=== PATIENT | male | born 1950 | race Caucasian/White ===

== ENCOUNTER 2017-11-05 05:07 | Inpatient (IN) | payer MEDICARE, OTHER ==
[~2017-11-05] VITALS: Ht 165.1 cm; Wt 87.2 kg
[2017-11-05] MEDS ORDERED: FURO20 PO (05:19)
[2017-11-05] MEDS ORDERED: ATOR40TA28 PO (05:19)
[2017-11-05] MEDS ORDERED: SLOWK8 PO (05:19)
[2017-11-05] MEDS ORDERED: LISI-660 PO (05:19)
[2017-11-05] MEDS ORDERED: ASPI-556 PO (05:19)
[2017-11-05] MEDS ORDERED: SPIR25 PO (05:19)
[2017-11-05] MEDS ORDERED: CLOP75 PO (05:19)
[2017-11-05 06:23] LABS: BASOPHILS # (AUTO) 0.03 K/uL (0.00-0.20); BASOPHILS % (AUTO) 0.1 % (0.0-2.0); EOSINOPHILS % (AUTO) 0.01 % (1.0-6.0); HEMATOCRIT 41.2 % (41-53); HEMOGLOBIN 13.5 g/dL (13.5-17.5); LYMPHOCYTES # (AUTO) 0.4 K/uL (1.0-4.8); LYMPHOCYTES % (AUTO) 1.9 % (22.0-44.0); MEAN CORPUSCULAR HEMOGLOBIN 34.7 pg (26.0-34.0); MEAN CORPUSCULAR HGB CONC 32.8 G/dL (31.0-37.0); MEAN CORPUSCULAR VOLUME 106 fL (80-100); MONOCYTES # (AUTO) 0.8 K/uL (0.1-1.0); MONOCYTES % (AUTO) 3.3 % (2.0-9.0); NEUTROPHILS # (AUTO) 21.9 K/uL (1.8-7.7); PLATELET COUNT (AUTO) 329 K/uL (150-450); RED BLOOD CELL COUNT(AUTO) 3.89 MIL/uL (4.50-5.90); RED CELL DISTRIBUTION WIDTH 13.1 % (11.5-14.5)
[2017-11-05 06:27] LABS: NEUTROPHILS % (AUTO) 94.6 % (40.0-70.0)
[2017-11-05 06:32] LABS: CALCIUM, TOTAL 8.8 mg/dL (8.8-10.5); CREATININE 1.59 mg/dL (0.60-1.30)
[2017-11-05 06:38] LABS: ALBUMIN 1.9 g/dL (3.4-5.0); BILIRUBIN,TOTAL 1.1 mg/dL (0.1-1.0); TOTAL PROTEIN, SERUM 8.8 g/dL (6.4-8.2)
[2017-11-05 06:52] LABS: INFLUENZA TYPE A NEGATIVE FOR TYPE A (NEGATIVE); INFLUENZA TYPE B NEGATIVE FOR TYPE B (NEGATIVE)
[2017-11-05] MEDS ORDERED: SODIUM CHLORIDE 0.9% 500 ML IV ONE (07:00)
[2017-11-05] MEDS ORDERED: CefTRIAXone SODIUM 1 GM in DEXTROSE 5%-WATER 10 ML IV ONE (07:00)
[2017-11-05 07:10] LABS: LACTIC ACID 2.2 mmol/L (0.4-2.0)
[2017-11-05] MEDS ORDERED: AZITHROMYCIN 500 MG/NS 250 ML IV ONE (07:30)
[2017-11-05] MEDS ORDERED: PANTOPRAZOLE SODIUM 40 MG/VIAL IVP ONE (08:15)
[2017-11-05] MEDS ORDERED: ONDANSETRON HCL 4 MG/2 ML VIAL IVP ONE (08:30)
[2017-11-05] MEDS ORDERED: HYDROmorphone 2 MG/ML SYRINGE IVP ONE (08:45)
[2017-11-05] MEDS ORDERED: RAPID SEQUENCE KIT [RSI] 1 EACH KIT ONE (09:00)
[2017-11-05] MEDS ORDERED: SUCCINYLCHOLINE CHLORIDE 20 MG/ML 10 ML VIAL ONE (09:00)
[2017-11-05 09:17] LABS: GLUCOSE,POINT OF CARE 47 MG/DL (70-110)
[2017-11-05] MEDS ORDERED: IOVERSOL 350 MG/ML 150 ML VIAL ONE (09:26)
[2017-11-05 09:33] LABS: ABG BASE EXCESS -11.7 mmol/L (-2.0-3.0); ABG CARBOXYHEMOGLOBIN 0.3 % (0.0-1.5); ABG HCO3 16.4 mmol/L (22.0-26.0); ABG METHEMOGLOBIN 0.1 % (0.0-1.5); ABG OXYGEN CONTENT 17.6 mL/dL (15.0-23.0); ABG OXYGEN SATURATION 99.8 % (95.0-98.0); ABG OXYHEMOGLOBIN 99.4 % (94.0-100.0); ABG PCO2 28 mmHg (35-45); ABG PH 7.322 (7.35-7.450); ABG TOTAL HEMOGLOBIN 12.1 G/dL (12.0-18.0); PO2, ARTERIAL BG 290.5 mmHg (79.0-87.0); SOURCE, BLOOD GAS ARTERIAL; TEMPERATURE, FAHRENHEIT, BG 100.1 FAHREN (96.0-98.6)
[2017-11-05 09:34] LABS: O2 DEVICE,BLOOD GAS NON REBREATHER (ROOM AIR); SITE, BLOOD GAS RT RADIAL
[2017-11-05 09:52] LABS: AMPHET/METH SCREEN,URINE POSITIVE (NEGATIVE); BARBITURATE SCREEN, URINE NEGATIVE (NEGATIVE); BENZODIAZEPINES SCREEN,URINE NEGATIVE (NEGATIVE); CANNABINOID SCREEN,URINE NEGATIVE (NEGATIVE); COCAINE SCREEN,URINE NEGATIVE (NEGATIVE); METHADONE SCREEN, URINE NEGATIVE (NEGATIVE); OPIATE SCREEN,URINE NEGATIVE (NEGATIVE)
[2017-11-05 09:56] LABS: PHENCYCLIDINE SCREEN,URINE NEGATIVE (NEGATIVE)
[2017-11-05] MEDS ORDERED: ACETAMINOPHEN 500 MG TABLET PO ONE (10:45)
[2017-11-05] MEDS ORDERED: NOREPINEPHRINE 4 MG/D5%-WATER 250 ML IV PRN (10:45)
[2017-11-05 11:45] VITALS: BP 88/54
[2017-11-05 16:00] VITALS: BP 105/66
[2017-11-05] MEDS ORDERED: EPINEPHrine 1:10,000 [1 MG/10 ML] SYRINGE IVP ONE ×2 (16:33→16:34)
[2017-11-05] MEDS ORDERED: SODIUM BICARBONATE [ADULT] 8.4% 50 MEQ/50 ML SYRINGE IVP ONE (16:34)
[2017-11-05 20:00] VITALS: BP 98/57
[2017-11-05] MEDS ORDERED: PIPERACILLIN/TAZO 3.375 GM/D5W 50 ML IV ONE (20:00)
[2017-11-05] MEDS ORDERED: SODIUM CHLORIDE 0.9% 250 ML IV ONE (21:20)
[2017-11-05] MEDS: BENZONATATE 100 MG CAPSULE PO PRN (21:58)
[2017-11-05] MEDS: ACETAMINOPHEN 325 MG TABLET PO PRN (21:59)
[2017-11-05] MEDS ORDERED: VANCOMYCIN HCL 1.5 GM in DEXTROSE 5%-WATER 250 ML IV ONE (23:00)
[2017-11-06] VITALS: BP 102/62
[2017-11-06 04:00] VITALS: BP 100/68
[2017-11-06] MEDS: PIPERACILLIN/TAZO 3.375 GM/D5W 50 ML IV SCH ×4 (04:11→22:19)
[2017-11-06 05:03] LABS: GLUCOSE,POINT OF CARE 120 MG/DL (70-110)
[2017-11-06 05:45] LABS: CALCIUM, TOTAL 8.1 mg/dL (8.8-10.5); CREATININE 2.21 mg/dL (0.60-1.30); POTASSIUM 4.8 mmol/L (3.5-5.1)
[2017-11-06 08:00] VITALS: BP 106/67
[2017-11-06] MEDS ORDERED: VANCOMYCIN HCL 1.25 GM in DEXTROSE 5%-WATER 250 ML IV SCH (08:00)
[2017-11-06] MEDS: BENZONATATE 100 MG CAPSULE PO PRN ×2 (08:07→13:41)
[2017-11-06] MEDS: ASPIRIN 81 MG EC TABLET PO SCH (08:08)
[2017-11-06] MEDS: ATORVASTATIN CALCIUM 40 MG TABLET PO SCH (08:08)
[2017-11-06] MEDS: ACETAMINOPHEN 325 MG TABLET PO PRN ×2 (08:08→15:06)
[2017-11-06] MEDS: CLOPIDOGREL BISULFATE 75 MG TABLET PO SCH (08:34)
[2017-11-06] MEDS ORDERED: POTASSIUM CHLORIDE 8 MEQ ER TABLET PO SCH (09:00)
[2017-11-06] MEDS ORDERED: SPIRONOLACTONE 25 MG TABLET PO SCH (09:00)
[2017-11-06] MEDS ORDERED: LISINOPRIL 5 MG TABLET PO SCH (09:00)
[2017-11-06] MEDS ORDERED: FUROSEMIDE 20 MG TABLET PO SCH (09:00)
[2017-11-06] MEDS ORDERED: *CLINICAL-RENAL DOSING MEDICATIONS CLINICAL ONE (09:45)
[2017-11-06 10:10] LABS: BASOPHILS # (AUTO) 0.01 K/uL (0.00-0.20); BASOPHILS % (AUTO) 0.1 % (0.0-2.0); EOSINOPHILS # (AUTO) 0.02 K/uL (0.00-0.70); EOSINOPHILS % (AUTO) 0.11 % (1.0-6.0); HEMATOCRIT 37.2 % (41-53); HEMOGLOBIN 12.1 g/dL (13.5-17.5); LYMPHOCYTES # (AUTO) 0.8 K/uL (1.0-4.8); LYMPHOCYTES % (AUTO) 4.1 % (22.0-44.0); MEAN CORPUSCULAR HEMOGLOBIN 34.9 pg (26.0-34.0); MEAN CORPUSCULAR HGB CONC 32.4 G/dL (31.0-37.0); MEAN CORPUSCULAR VOLUME 108 fL (80-100); MONOCYTES # (AUTO) 0.4 K/uL (0.1-1.0); MONOCYTES % (AUTO) 1.9 % (2.0-9.0); NEUTROPHILS # (AUTO) 17.8 K/uL (1.8-7.7); NEUTROPHILS % (AUTO) 93.9 % (40.0-70.0); PLATELET COUNT (AUTO) 352 K/uL (150-450); RED BLOOD CELL COUNT(AUTO) 3.46 MIL/uL (4.50-5.90); RED CELL DISTRIBUTION WIDTH 13.5 % (11.5-14.5)
[2017-11-06 12:00] VITALS: BP 96/63
[2017-11-06] MEDS: MORPHINE SULFATE 2 MG/ML SYRINGE IVP PRN ×2 (13:42→16:32)
[2017-11-06 14:45] LABS: CREATININE,URINE RANDOM 33.1 mg/dL (30.0-125.0); PROTEIN,URINE RANDOM 51 mg/dL (0-11.9); SODIUM,URINE RANDOM 55 mmol/l (20-110)
[2017-11-06 14:47] LABS: APPEARANCE,URINE CLOUDY (CLEAR); BILIRUBIN,URINE NEGATIVE (NEGATIVE); GLUCOSE, URINE (UA) NEGATIVE (NEGATIVE); KETONES,URINE NEGATIVE (NEGATIVE); LEUKOCYTE ESTERASE ,URINE TRACE (NEGATIVE); NITRATE,URINE NEGATIVE (NEGATIVE); OCCULT BLOOD,URINE LARGE (NEGATIVE); PH,URINE 5.5 (5.0-8.0); PROTEIN,URINE TRACE (NEGATIVE)
[2017-11-06 15:42] LABS: BACTERIA,URINE None Seen /HPF (None Seen); RBC,URINE 51-100 /HPF (0-2); SQUAMOUS EPITHELIAL CELL,UR Rare /LPF (None Seen); URIC ACID CRYSTALS,URINE Moderate /LPF (None Seen)
[2017-11-06 16:00] VITALS: BP 102/54
[2017-11-06 20:00] VITALS: BP 92/54
[2017-11-07] VITALS (8 sets, daily range): BP systolic 101–141; BP diastolic 61–82
[2017-11-07] MEDS: PIPERACILLIN/TAZO 3.375 GM/D5W 50 ML IV SCH ×4 (04:00→21:42)
[2017-11-07 05:56] LABS: CALCIUM, TOTAL 8.1 mg/dL (8.8-10.5); CREATININE 1.7 mg/dL (0.60-1.30); POTASSIUM 4.9 mmol/L (3.5-5.1)
[2017-11-07] MEDS: CLOPIDOGREL BISULFATE 75 MG TABLET PO SCH (08:01)
[2017-11-07] MEDS: VANCOMYCIN HCL 1 GM/D5% WATER 200 ML IV SCH (08:01)
[2017-11-07] MEDS: ASPIRIN 81 MG EC TABLET PO SCH (08:01)
[2017-11-07] MEDS: ATORVASTATIN CALCIUM 40 MG TABLET PO SCH (08:01)
[2017-11-07] MEDS: MORPHINE SULFATE 2 MG/ML SYRINGE IVP PRN ×3 (08:01→20:08)
[2017-11-07] MEDS ORDERED: SODIUM CHLORIDE 0.9% 250 ML IV ONE (11:47)
[2017-11-08] MEDS: MORPHINE SULFATE 2 MG/ML SYRINGE IVP PRN ×2 (02:35→19:34)
[2017-11-08 03:59] VITALS: BP 126/75
[2017-11-08] MEDS: PIPERACILLIN/TAZO 3.375 GM/D5W 50 ML IV SCH ×4 (04:16→21:41)
[2017-11-08 07:26] VITALS: BP 122/70
[2017-11-08 07:30] LABS: CALCIUM, TOTAL 8.6 mg/dL (8.8-10.5); CREATININE 1.32 mg/dL (0.60-1.30); MAGNESIUM 2.1 mg/dL (1.80-2.40); PHOSPHORUS 3.4 mg/dL (2.5-4.9)
[2017-11-08] MEDS: ATORVASTATIN CALCIUM 40 MG TABLET PO SCH (08:25)
[2017-11-08] MEDS: ASPIRIN 81 MG EC TABLET PO SCH (08:25)
[2017-11-08] MEDS: CLOPIDOGREL BISULFATE 75 MG TABLET PO SCH (08:25)
[2017-11-08] MEDS: VANCOMYCIN HCL 1 GM/D5% WATER 200 ML IV SCH (08:26)
[2017-11-08 11:14] VITALS: BP 123/74
[2017-11-08 15:31] VITALS: BP 128/75
[2017-11-08 19:23] VITALS: BP 129/79
[2017-11-08] MEDS ORDERED: SODIUM CHLORIDE 0.9% 250 ML IV ONE (21:43)
[2017-11-08] MEDS: BENZONATATE 100 MG CAPSULE PO PRN (22:45)
[2017-11-08 23:42] VITALS: BP 142/86
[2017-11-09] MEDS: PIPERACILLIN/TAZO 3.375 GM/D5W 50 ML IV SCH (04:06)
[2017-11-09 04:08] VITALS: BP 128/81
[2017-11-09 07:19] LABS: ANION GAP 6 mmol/L (8-16); CALCIUM, TOTAL 8.6 mg/dL (8.8-10.5); CARBON DIOXIDE 28 mmol/L (22-29); CHLORIDE 99 mmol/L (98-107); CREATININE 1.12 mg/dL (0.60-1.30); GLOMERULAR FILTR. RATE CALC > 60 mL/min (>60); GLUCOSE,RANDOM 101 mg/dL (70-110); PHOSPHORUS 3.2 mg/dL (2.5-4.9); POTASSIUM 4.6 mmol/L (3.5-5.1); SODIUM SERUM 133 mmol/L (136-145); UREA NITROGEN, BLOOD 22 mg/dL (7-18)
[2017-11-09 07:24] VITALS: BP 127/81
[2017-11-09] MEDS: CLOPIDOGREL BISULFATE 75 MG TABLET PO SCH (08:07)
[2017-11-09] MEDS: ATORVASTATIN CALCIUM 40 MG TABLET PO SCH (08:07)
[2017-11-09] MEDS: ASPIRIN 81 MG EC TABLET PO SCH (08:08)
[2017-11-09] MEDS: VANCOMYCIN HCL 1 GM/D5% WATER 200 ML IV SCH (08:09)
[2017-11-09] MEDS: BENZONATATE 100 MG CAPSULE PO PRN (08:09)
[2017-11-09] MEDS: AMOX TR/POT CLAV 500 MG/125 MG TABLET PO SCH ×2 (11:13→20:29)
[2017-11-09 11:35] VITALS: BP 113/61
[2017-11-09] MEDS: LISINOPRIL 5 MG TABLET PO SCH (13:06)
[2017-11-09 15:39] VITALS: BP 148/76
[2017-11-09 17:40] LABS: ANION GAP 2 mmol/L (8-16); CALCIUM, TOTAL 8.6 mg/dL (8.8-10.5); CARBON DIOXIDE 32 mmol/L (22-29); CHLORIDE 99 mmol/L (98-107); CREATININE 1.15 mg/dL (0.60-1.30); GLOMERULAR FILTR. RATE CALC > 60 mL/min (>60); GLUCOSE,RANDOM 110 mg/dL (70-110); POTASSIUM 5.1 mmol/L (3.5-5.1); SODIUM SERUM 133 mmol/L (136-145); UREA NITROGEN, BLOOD 22 mg/dL (7-18)
[2017-11-09 17:41] LABS: BASOPHILS # (AUTO) 0.04 K/uL (0.00-0.20); BASOPHILS % (AUTO) 0.3 % (0.0-2.0); EOSINOPHILS # (AUTO) 0.22 K/uL (0.00-0.70); EOSINOPHILS % (AUTO) 1.92 % (1.0-6.0); HEMATOCRIT 37.2 % (41-53); HEMOGLOBIN 12.3 g/dL (13.5-17.5); LYMPHOCYTES # (AUTO) 0.6 K/uL (1.0-4.8); LYMPHOCYTES % (AUTO) 5.4 % (22.0-44.0); MEAN CORPUSCULAR HGB CONC 32.9 G/dL (31.0-37.0); MEAN CORPUSCULAR VOLUME 106 fL (80-100); MONOCYTES # (AUTO) 0.9 K/uL (0.1-1.0); MONOCYTES % (AUTO) 7.5 % (2.0-9.0); NEUTROPHILS # (AUTO) 9.7 K/uL (1.8-7.7); NEUTROPHILS % (AUTO) 84.9 % (40.0-70.0); PLATELET COUNT (AUTO) 392 K/uL (150-450); RED CELL DISTRIBUTION WIDTH 13.4 % (11.5-14.5)
[2017-11-09 17:45] LABS: ALANINE AMINOTRANSFERASE 106 U/L (12-78); ALBUMIN 1.7 g/dL (3.4-5.0); ALKALINE PHOSPHATASE 215 U/L (46-116); ASPARTATE AMINOTRANSFERASE 101 U/L (15-37); BILIRUBIN,TOTAL 0.5 mg/dL (0.1-1.0); TOTAL PROTEIN, SERUM 8.2 g/dL (6.4-8.2)
[2017-11-09 19:24] VITALS: BP 137/54
[2017-11-09] MEDS: CARVEDILOL 3.125 MG TABLET PO SCH (20:29)
[2017-11-09 22:35] VITALS: BP 124/76
[2017-11-09] MEDS: MORPHINE SULFATE 2 MG/ML SYRINGE IVP PRN (22:40)
[2017-11-10 00:18] VITALS: BP 114/70
[2017-11-10 04:36] VITALS: BP 121/59
[2017-11-10 07:09] LABS: ANION GAP 6 mmol/L (8-16); CALCIUM, TOTAL 8.6 mg/dL (8.8-10.5); CARBON DIOXIDE 27 mmol/L (22-29); CHLORIDE 98 mmol/L (98-107); CREATININE 0.98 mg/dL (0.60-1.30); GLOMERULAR FILTR. RATE CALC > 60 mL/min (>60); GLUCOSE,RANDOM 105 mg/dL (70-110); PHOSPHORUS 3.3 mg/dL (2.5-4.9); SODIUM SERUM 131 mmol/L (136-145); UREA NITROGEN, BLOOD 20 mg/dL (7-18)
[2017-11-10 07:36] VITALS: BP 118/66
[2017-11-10] MEDS: CARVEDILOL 3.125 MG TABLET PO SCH (08:47)
[2017-11-10] MEDS: CLOPIDOGREL BISULFATE 75 MG TABLET PO SCH (08:47)
[2017-11-10] MEDS: LISINOPRIL 5 MG TABLET PO SCH (08:48)
[2017-11-10] MEDS: ASPIRIN 81 MG EC TABLET PO SCH (08:48)
[2017-11-10] MEDS: AMOX TR/POT CLAV 500 MG/125 MG TABLET PO SCH ×2 (08:48→18:04)
[2017-11-10] MEDS: ATORVASTATIN CALCIUM 40 MG TABLET PO SCH (08:48)
[2017-11-10] MEDS: BENZONATATE 100 MG CAPSULE PO PRN (08:48)
[2017-11-10] MEDS: ACETAMINOPHEN 325 MG TABLET PO PRN (10:43)
[2017-11-10 11:14] VITALS: BP 98/51
[2017-11-10 15:42] VITALS: BP 116/61
[2017-11-10] MEDS ORDERED: CARV3 PO (16:42)
[2017-11-10] MEDS ORDERED: AMOX1TAB16 PO (16:43)
== END 2017-11-10 18:25 | disposition home or self-care (01) | DRG 177 ==
LOC: EMS 05:09 → 5S 08:08 → ICU 11:51 → 5S 11-07 11:11
PROVIDERS: ADMIT Hospitalist; ATTEND Hospitalist
PROC: 5A12012 Performance of Cardiac Output, Single, Manual (ICD-10-PCS; principal; 2017-11-05)
DX: J69.0 Pneumonitis due to inhalation of food and vomit (principal); I46.9 Cardiac arrest, cause unspecified; N17.0 Acute kidney failure with tubular necrosis; I13.0 Hypertensive heart and chronic kidney disease with heart failure and stage 1 through stage 4 chronic kidney disease, or unspecified chronic kidney disease; E87.2 Acidosis; I50.22 Chronic systolic (congestive) heart failure; E87.1 Hypo-osmolality and hyponatremia; I42.7 Cardiomyopathy due to drug and external agent; J15.4 Pneumonia due to other streptococci; F15.10 Other stimulant abuse, uncomplicated; E87.5 Hyperkalemia; E87.6 Hypokalemia; F17.200 Nicotine dependence, unspecified, uncomplicated; N18.9 Chronic kidney disease, unspecified; T50.8X5A Adverse effect of diagnostic agents, initial encounter; N14.1 Nephropathy induced by other drugs, medicaments and biological substances; Z95.810 Presence of automatic (implantable) cardiac defibrillator; Z79.82 Long term (current) use of aspirin
CPT/HCPCS: 71260; 76770; 82570; 82805; 82948; 82962; 83605; 83735; 84100; 84132; 84156; 84300; 87040; 87081; 87147; 87804; 92610; 92950; 93005; 93306; 96365; 96366; 96368; 96375; 97161; 99291; C9113; J0171; J0330; J0456; J0696; J2270; J2405; J2543; J3370; J3490; J7030; J7050; J7060